=== PATIENT | male | born 1970 | race Caucasian/White ===

== ENCOUNTER → 2016-07-16 | Outpatient (CLI) | payer MEDICARE ==
[2016-07-16 11:26] LABS: HEMOGLOBIN 14.4 gm/dl (14.0-17.5); RED BLOOD COUNT 4.91 M/UL (4.20-5.50); WHITE BLOOD COUNT 5.7 K/UL (4.5-11.0)
[2016-07-16 11:50] LABS: BUN/CREATININE RATIO 16 (0-10)
== END ==
LOC: LAB 10:14
PROVIDERS: Internal Medicine
DX: Z11.59 Encounter for screening for other viral diseases (principal); F11.20 Opioid dependence, uncomplicated; Z20.5 Contact with and (suspected) exposure to viral hepatitis; Z72.89 Other problems related to lifestyle
CPT/HCPCS: 36415; 80053; 80074; 85027; 87390